=== PATIENT | female | born 1980 | race Caucasian/White ===

== ENCOUNTER 2017-10-23 12:39 | Emergency (ER) | payer MEDICAID ==
[~2017-10-23] VITALS: Ht 160 cm; Wt 77.1 kg
[2017-10-23 12:44] VITALS: Ht 160 cm; Wt 77.1 kg
[2017-10-23 14:17] VITALS: BP 105/66
== END 2017-10-23 14:17 | disposition home or self-care (01) ==
LOC: ED 12:39
DX: S29.011A Strain of muscle and tendon of front wall of thorax, initial encounter (principal); Z90.49 Acquired absence of other specified parts of digestive tract; Z90.89 Acquired absence of other organs; V89.2XXA Person injured in unspecified motor-vehicle accident, traffic, initial encounter; Y93.89 Activity, other specified; Y92.89 Other specified places as the place of occurrence of the external cause; Y99.8 Other external cause status
CPT/HCPCS: J1885